=== PATIENT | female | born 1980 | race Asian ===

== ENCOUNTER 2019-06-17 17:06 | Inpatient (IN) | payer OTHER ==
[~2019-06-17] VITALS: Ht 162.6 cm; Wt 56.7 kg
--- NOTE | 2019-06-17 17:48 | NUR ---
PACIENTE ALERTA Y ORIENTADA X3 ES TRANFERIDA DE CRUCERO A BRANDON DE EMERGENCIA POR DOLOR ABDOMINAL Y EN CUADRANTE RT,QUE COMENZO EL SABADO, SE NOTIFICA A DR. CROUCH QUIEN EVALUARA A PACIENTE SE UBICA EN [facility]A DE [facility].
--- NOTE | 2019-06-17 19:19 | NUR ---
SE ORIENTA PTE SOBRE TX MEDICO EL CUAL REFIERE ENTENDER.SE LE EXTRAEN MUESTRAS BAJO MEDIDAS ASEPTICAS,SE CANALIZA Y SE ADMINISTRA MEDICAMENTO ZHANNA ORDEN MEDICA.SE NOTIFICA CT PENDIENTE LUEGO DE MUESTRA DE HCG.
== END 2019-06-27 10:06 | disposition home or self-care (01) | DRG 338 ==
LOC: ER 17:06 → SURG 20:16 → SEC-K 20:16 → O/R 22:31 → SURG 23:42
PROVIDERS: ADMIT Surgery
PROC: 0W9J40Z Drainage of Pelvic Cavity with Drainage Device, Percutaneous Endoscopic Approach (ICD-10-PCS; 2019-06-17)
PROC: BW21Y0Z Computerized Tomography (CT Scan) of Abdomen and Pelvis using Other Contrast, Unenhanced and Enhanced (ICD-10-PCS; 2019-06-17)
PROC: 0DTJ4ZZ Resection of Appendix, Percutaneous Endoscopic Approach (ICD-10-PCS; principal; 2019-06-17 20:00)
DX: K35.33 Acute appendicitis with perforation, localized peritonitis, and gangrene, with abscess (principal); A41.9 Sepsis, unspecified organism; J95.89 Other postprocedural complications and disorders of respiratory system, not elsewhere classified; J98.11 Atelectasis; J90 Pleural effusion, not elsewhere classified; R18.8 Other ascites; E44.0 Moderate protein-calorie malnutrition; E86.0 Dehydration; E87.8 Other disorders of electrolyte and fluid balance, not elsewhere classified; B96.29 Other Escherichia coli [E. coli] as the cause of diseases classified elsewhere; B96.7 Clostridium perfringens [C. perfringens] as the cause of diseases classified elsewhere; B96.6 Bacteroides fragilis [B. fragilis] as the cause of diseases classified elsewhere